=== PATIENT | male | born 1985 | race African-American/Black ===

== ENCOUNTER 2020-08-26 12:45 | Emergency (ER) | payer OTHER ==
[~2020-08-26] VITALS: Ht 175.3 cm; Wt 65.8 kg
[~2020-08-26 12:45] MED LIST: ACETAMINOPHEN-1 EAC1 PO; CLEOCIN HCL150 MG PO; IBUPROFEN 600600 M1 PO; LIDOCAINE VISC100 ML SWISH&SPIT
[2020-08-26] MEDS ORDERED: CEPHALEXIN500 MG PO (13:07)
[2020-08-26 13:46] VITALS: BP 110/77
== END 2020-08-26 13:48 | disposition home or self-care (01) ==
LOC: M.ERS 12:45
DX: M79.641 Pain in right hand (principal); B07.9 Viral wart, unspecified; F17.210 Nicotine dependence, cigarettes, uncomplicated